=== PATIENT | male | born 2000 ===

== ENCOUNTER 2024-10-03 15:03 | Emergency (ER) | payer OTHER ==
[~2024-10-03] VITALS: Ht 185.4 cm; Wt 86.4 kg
[2024-10-03 15:12] VITALS: TEMP 98.7
[2024-10-03 15:58] LABS: COVID AG,FIA SOURCE NASAL SWAB
[2024-10-03 16:23] LABS: SARS-COV2 (COVID) ANTIGEN,FIA Negative (Negative)
[2024-10-03 16:25] LABS: INFLUENZA TYPE A NEGATIVE FOR TYPE A (NEGATIVE); INFLUENZA TYPE B NEGATIVE FOR TYPE B (NEGATIVE)
[2024-10-03] MEDS ORDERED: IBUP-1492 PO (18:01)
[2024-10-03] MEDS ORDERED: VALA500T PO (18:01)
[2024-10-03 18:20] VITALS: BP 118/81; PULSE 94; RESP 18; O2SAT 99
== END 2024-10-03 18:42 | disposition home or self-care (01) ==
LOC: EDBD 15:03 → EMS 15:03
DX: B02.9 Zoster without complications (principal); F20.9 Schizophrenia, unspecified; F31.9 Bipolar disorder, unspecified; F17.210 Nicotine dependence, cigarettes, uncomplicated; Z20.822 Contact with and (suspected) exposure to COVID-19
CPT/HCPCS: 71045; 87804; 99284